=== PATIENT | female | born 1990 | race Caucasian/White ===

== ENCOUNTER 2021-06-25 14:55 | Emergency (ER) | payer OTHER ==
[~2021-06-25 14:55] MED LIST: BENADRYL12.5 MG/5 PO; CYMBALTA20 MG PO; DIAZEPAM 2MG TAB2 MG PO; IBUPROFEN800 MG PO; LIDOCAINE 2%30 ML TOP; MELOXICAM15 MG PO; MOBIC15 MG PO; NEURONTIN300 MG PO; NORCO 5-325 TA1 EAC1 PO; TRAMADOL HCL50 MG PO
[2021-06-25 16:45] LABS: BASOPHIL 0.1 % (0-2); EOSINOPHIL 0.1 % (0-5); HCT 41.8 % (37.0-47.0); HGB 14.1 g/dl (12.5-16.0); LYMPHOCYTE 11.6 % (15-48); MCH 30.2 pg (25.0-31.0); MCHC 33.7 g/dL (32.0-36.0); MCV 89.5 fL (78.0-100.0); MONOCYTE 3.3 % (0-12); MPV 11.3 fL (6.0-9.5); NEUTROPHIL 84.6 % (41-80); NRBC 0; PLT 254 K/uL (150-400); RBC 4.67 M/uL (4.20-5.40); RDW 12.2 % (11.5-14.0); WBC 11.4 K/uL (4.0-10.5)
[2021-06-25 17:02] LABS: INR 1.02 (0.9-1.2); PROTHROMBIN TIME 12.8 SECONDS (11.8-13.4); PTT 25.1 SECONDS (24.4-34.7)
[2021-06-25 17:18] LABS: ALBUMIN 4.5 g/dL (3.4-5.0); BILIRUBIN - TOTAL 0.5 mg/dL (0.2-1.0); BUN/CREAT RATIO (CALC) 11.7 RATIO; CREATININE 0.77 mg/dL (0.51-0.95); GLOBULIN (CALCULATION) 4.1 g/dL; POTASSIUM 3.6 mmol/L (3.5-5.1); TOTAL PROTEIN 8.6 g/dL (6.4-8.2)
== END 2021-06-25 19:10 | disposition left against medical advice (07) ==
LOC: FER 14:55
PROVIDERS: Emergency Medicine
DX: R07.89 Other chest pain (principal); Z88.2 Allergy status to sulfonamides; Z88.5 Allergy status to narcotic agent
CPT/HCPCS: 36415; 71045; 80053; 84484; 85025; 85610; 85730; 93005